=== PATIENT | female | born 1945 | race Caucasian/White ===

== ENCOUNTER → 2016-12-30 | Outpatient (CLI) | payer OTHER ==
--- NOTE | 2016-12-30 16:05 | KCIC ---
PROCEDURE Carotid Doppler ultrasound HISTORY CVA, stenosis of carotid artery, smoker COMPARISON None FINDINGS Multiple grayscale, color, and duplex spectral analysis waveform images of the cervical arterial vasculature are submitted. Any determination of stenosis is based on NASCET criteria. No significant focal stenosis is demonstrated on grayscale or color images. There is antegrade flow of the vertebral arteries bilaterally. There is mild eccentric plaque of the carotid bulbs. Velocities in cm/sec are as follows: Right: CCA PSV 69, EDV 13 Maximal ICA PSV 92, EDV 22 External PSV 56 Vertebral PSV 22 ICA/CCA ratio 1.3 Left: CCA PSV 53, EDV 12 Maximal ICA PSV 55, EDV 12 External PSV 92 Left vertebral PSV 44 ICA/CCA ratio 1.03 IMPRESSION 1. There is mild plaque of the carotid bulbs bilaterally, no evidence of a hemodynamically significant stenosis. Electronically signed by: Fred Brenner MD (Dec 30, 2016 16:03:47)
--- NOTE | 2016-12-31 08:33 | KCIC ---
Bilateral digital screening mammograms with CAD: HISTORY Routine screening. COMPARISON New baseline. No previous films are available for comparison. FINDINGS Breast density category C. The skin and nipples show no abnormalities. No abnormal lymph nodes are seen in the axilla. The breast parenchyma shows heterogeneous density. There is a small 9 millimeter nodular parenchymal density in the lower inner quadrant of the left breast posteriorly. Further evaluation with ultrasound is recommended. There are no other dominant masses, suspicious calcifications or architectural distortions. Benign appearing calcifications are present. IMPRESSION 9 millimeter nodular density in the lower inner quadrant of the left breast posteriorly. Recommend further evaluation with ultrasound. This study was interpreted with the benefit of Computerized Aided Detection (CAD). Mammography is not 100% sensitive in detecting breast cancer. Therefore, a self breast exam and a clinical breast exam are very important. A negative mammogram does not negate a clinically suspicious finding and should not result in a delay in biopsying a clinically suspicious abnormality. BI-RADS category 0: Incomplete. Ultrasound followup is recommended. This patient's information has been entered into a reminder system for the patient to be notified with the results of this examination and a target date for her next mammograms. Electronically signed by: Lula Mtz MD (Dec 31, 2016 08:31:29)
== END | disposition home or self-care (01) ==
LOC: KCIC MAMMO 15:01
PROVIDERS: ATTEND Family Medicine
DX: Z12.31 Encounter for screening mammogram for malignant neoplasm of breast (principal); I63.9 Cerebral infarction, unspecified; I65.23 Occlusion and stenosis of bilateral carotid arteries; Z87.891 Personal history of nicotine dependence
CPT/HCPCS: 93880; G0202; 77067

== ENCOUNTER → 2017-01-12 | Outpatient (CLI) | payer OTHER ==
--- NOTE | 2017-01-12 12:42 | RAD ---
EXAM: Left breast sonogram. HISTORY: 71-year-old female presents for avulsion of a nodule within the left breast demonstrated on a mammogram dated 12/30/2016. TECHNIQUE: Sonographic imaging of the left breast targeted to the 7:00 position and left axilla was performed. COMPARISON: 12/30/2016. FINDINGS: There is a circumscribed hypoechoic lesion within the 7:00 position of the left breast 8 cm from the nipple measuring 7 mm in maximum dimension. This demonstrates ill-defined peripheral echogenicity.. This is somewhat angulated on the radial image. There is no posterior shadowing or through transmission. There is a left axillary lymph node with benign fatty hilum. IMPRESSION: 1. 7 mm nodule within the 7:00 position of the left breast, corresponding with the mammographic finding of concern. The mammographic and sonographic features are not clearly benign. Sonographic guided biopsy is recommended for definitive diagnosis. 2. BI-RADS Category 4: Suspicious finding. Sonographic biopsy is recommended. These findings and recommendations were discussed with the patient and will be communicated to the referring physician office.
== END | disposition home or self-care (01) ==
LOC: KCIC US 12:12
PROVIDERS: ATTEND Family Medicine
DX: N63 Unspecified lump in breast (principal)
CPT/HCPCS: 76641

== ENCOUNTER → 2017-02-11 | Outpatient (CLI) | payer OTHER ==
[~2017-02-11] VITALS: Ht 162.6 cm; Wt 78.5 kg
[~2017-02-11] MED LIST: ATOR40TA59 PO; CLOP75TA PO; DULO30CA43 PO; LISI-334 PO; PANT40TA5 PO; TRAM50TA PO; TRAZ50TA15 PO
[2017-02-11 13:36] VITALS: BP 147/68
--- NOTE | 2017-02-11 15:45 | RAD ---
Ultrasound-guided breast biopsy History: Left breast mass. Comparison: Left breast ultrasound 01/12/2017. Procedure: Risks, benefits and complications of the procedure were discussed with the patient. Written informed consent was obtained. Preprocedure ultrasound imaging was performed of the left breast. In the left breast at 7:00, a rounded mass which had appearance of mildly complicated cyst was seen. This mass appears to be at 7:00 located about 4 cm from nipple (previous study indicated that the lesion was at 7:00, 8 cm the nipple). Careful scanning was performed of the medial inferior quadrant of the left breast, and no other lesion was identified. It is thought that the current lesion represented the previously identified abnormality. This lesion was targeted. The skin was prepped and draped in usual sterile fashion. Local anesthesia with 1% lidocaine. Under ultrasound visualization, single pass with a Bard 14-gauge biopsy gun was made. The mass disappeared after the first pass, and it is thought that this mass represented a cyst. No other biopsy passes were made. As lesion resolved, biopsy clip was not deployed. Patient tolerated procedure well and there were no acute ill effects. Impression: On current examination, a hypoechoic mass which is thought to be a cyst was identified in the left breast at 7:00, 4 cm from the nipple, as lesion resolved after first biopsy pass. The previous study indicated that the mass was at 7:00, 8 cm from the nipple. Careful scanning of the medial inferior left breast failed to demonstrate any other lesion, and consequently the mass at 7:00, 4 cm the nipple was targeted.
--- NOTE | 2017-02-15 16:50 | PATHOLOGY ---
PATHOLOGY REPORT * * * * * * * * FINAL DIAGNOSIS: Breast tissue, left breast mass at 7:00 needle biopsy: - Focal stromal fibrosis. COMMENT: There is no distinct cyst lining identified. There is no evidence of malignancy. (JPM:; d/t: 02/15/17) REPORT ELECTRONICALLY SIGNED BY: Ciaran Reed M.D. DATE/TIME: 02/15/2017 16:48 * * * * * * * * GROSS PATHOLOGY: Received in formalin labeled "Autumn Melissa, left breast mass," are multiple needle cores of yellow-garcia fibrofatty tissue measuring 1.2 x 0.2 x 0.1 cm in aggregate dimensions. The tissue is submitted in its entirety in cassette A1. The cold ischemic time is 5 minutes. The total formalin fixation time is 28 hours. (SNA; 02/12/2017) INITIAL CPT CODE(S): A; 55854 Professional services performed by [facility] [place] [address] Technical services performed by [facility] at [address] [place] [address]. SPECIMEN(S) RECEIVED: A.Left breast mass CLINICAL HISTORY: Left breast mass at 7:00, resolved after biopsy, probable cyst PATIENT: AUTUMN MELISSA /AGE: 603/20/1945 (Age: 71) PATIENT #: [id number] ALT CASE #: SPECIMEN COLLECTION DATE: 02/11/2017 SPECIMEN RECEIVED DATE: 02/11/2017 [facility] - [address] [place] [address] - PHONE: [phone] * * * END OF REPORT * * *
== END | disposition home or self-care (01) ==
LOC: US 12:58
PROVIDERS: ATTEND Surgery
DX: N63 Unspecified lump in breast (principal)
CPT/HCPCS: 19081; 76942; 88305

== ENCOUNTER → 2017-03-11 | Day surgery (SDC) | payer OTHER ==
[~2017-03-11] MED LIST changes: +HYDROmorphone 2 MG/ML VIAL IV PRN; +IV RINGERS,LACTATED 1000ML 1,000 ML IV SCH; +LIDOCAINE 1% 1 ML SYRINGE. ID PRN; +LIDOCAINE 2% PF Vial for OR 5 ML VIAL. ONE; +MORPHINE SULFATE 2 MG/ML DISP.SYRIN. IV PRN; +NITR100C62 PO; +ONDANSETRON PF 4 MG/2 ML VIAL. IV PRN; +PROCHLORPERAZINE 10 MG/2 ML VIAL. IV PRN; +PROPOFOL 20 ML IV ONE; +PROPOFOL 40 ML IV ONE; +fentaNYL PF VIAL 100 MCG/2 ML VIAL IV PRN
[2017-03-11 13:30] VITALS: BP 102/55
--- NOTE | 2017-03-12 08:45 | HP ---
ADMIT DATE: 03/11/2017 REFERRING PHYSICIAN: Jodee Sanches MD HISTORY OF PRESENT ILLNESS: This is a 71-year-old female with past medical history significant for hyperlipidemia, hypertension, gastroesophageal reflux disease with diverticulosis and cholelithiasis, who was admitted status post cholecystectomy, is seen for persistent epigastric abdominal pain ____ colorectal screening with a history of diverticular disease. She states she has increased discomfort when she does eat. There has been no dysphagia or odynophagia. There is heartburn for which she takes ____ Prilosec, pantoprazole. No melena and/or hematochezia. Weight and appetite have been stable. There has been some diarrhea recently as well. With the continued issues, she requested additional evaluation. PAST MEDICAL HISTORY: Hyperlipidemia, hypertension, gastroesophageal reflux disease. ALLERGIES: None. MEDICATIONS: Include atorvastatin, duloxetine, lisinopril, pantoprazole, tramadol and trazodone. SOCIAL HISTORY: She is a remote smoker and social drinker. FAMILY HISTORY: Significant for organic heart disease. PAST SURGICAL HISTORY: She is status post hysterectomy, cholecystectomy and bilateral hip replacements. DISPATCH LEAD HISTORY: 2, para 2. REVIEW OF SYSTEMS: Per records. PHYSICAL EXAMINATION: GENERAL: Reveals a well-nourished, well-developed female, who is alert, cooperative, in no acute distress. VITAL SIGNS: Pulse 75, respirations 16. HEENT: Reveals a normocephalic, atraumatic head. Pupils and extraocular movements are not tested. Sclerae anicteric. NECK: Supple. LUNGS: Clear. CARDIOVASCULAR: Reveals S1, S2 without S3, S4 or appreciable murmur. ABDOMEN: Reveals a soft abdomen, normal bowel sounds, epigastric tenderness to deep palpation. No appreciable hepatosplenomegaly. Multiple surgical incisions. EXTREMITIES: Reveals no cyanosis, clubbing or edema. IMPRESSION: 1. Epigastric abdominal pain, the etiology is to be determined, status post cholecystectomy. Upper endoscopy to further assess recommended. If this is unrevealing, then a gastric emptying study and a small bowel series may be pursued. 2. Colorectal screening, history of diverticular disease. Colonoscopy is recommended. I would like to thank Dr. Sanches for allowing us to consult and participate in this patient's care. OTIS FRANCIS MD DR: TARSHA/adriano JOB#: [id number] / [id number] JODEE Dunlap MD
--- NOTE | 2017-03-17 11:05 | PATHOLOGY ---
PATHOLOGY REPORT * * * * * * * * FINAL DIAGNOSIS: Esophageal biopsy, distal esophagus: - Segments of hyperplastic squamous esophageal mucosa and submucosa showing chronic inflammation, consistent with reflux esophagitis. COMMENT: Sections of the distal esophageal biopsy reveal segments of tangentially oriented, hyperplastic squamous esophageal mucosa and submucosa showing chronic inflammation, consistent with reflux esophagitis. There is no evidence of Navarro's change, dysplasia, or malignancy. REPORT ELECTRONICALLY SIGNED BY: Ciaran Reed M.D. DATE/TIME: 03/16/2017 13:26 * * * * * * * * GROSS PATHOLOGY: Received in formalin labeled "Autumn Melissa, distal esophageal biopsies," are 4 segments of huizar soft tissue measuring 0.6 x 0.5 x 0.3 cm in aggregate dimensions and ranging from 0.3 to 0.6 cm in maximum dimension. The specimen is submitted entirely in cassette A1. (KAH; 03/12/2017) INITIAL CPT CODE(S): A; 34232 Professional services performed by [facility] [place] [address] Technical services performed by [facility] at [address] [place] [address] [address] [address]. SPECIMEN(S) RECEIVED: A.Distal esophageal biopsies CLINICAL HISTORY: History of gastritis, epigastric pain, colon screening PATIENT: AUTUMN MELISSA /AGE: 603/20/1945 (Age: 71) PATIENT #: [id number] ALT CASE #: SPECIMEN COLLECTION DATE: 03/11/2017 SPECIMEN RECEIVED DATE: 03/11/2017 [facility] - [address] [place] [address] - PHONE: [phone] * * * END OF REPORT * * *
== END | disposition home or self-care (01) ==
LOC: ENDOS 11:34
PROVIDERS: ATTEND Internal Medicine Gastroenterology
DX: Z12.11 Encounter for screening for malignant neoplasm of colon (principal); K21.0 Gastro-esophageal reflux disease with esophagitis; K29.50 Unspecified chronic gastritis without bleeding; E78.00 Pure hypercholesterolemia, unspecified; I10 Essential (primary) hypertension; F32.9 Major depressive disorder, single episode, unspecified; M19.90 Unspecified osteoarthritis, unspecified site; F17.290 Nicotine dependence, other tobacco product, uncomplicated; Z98.41 Cataract extraction status, right eye; Z98.42 Cataract extraction status, left eye; Z90.49 Acquired absence of other specified parts of digestive tract; Z90.710 Acquired absence of both cervix and uterus; Z96.643 Presence of artificial hip joint, bilateral; Z96.651 Presence of right artificial knee joint; Z72.89 Other problems related to lifestyle
CPT/HCPCS: 43239; 45378; J2704; 88305

== ENCOUNTER 2017-03-12 13:11 | Emergency (ER) | payer OTHER ==
[~2017-03-12] VITALS: Ht 162.6 cm; Wt 77.1 kg
[~2017-03-12 13:11] MED LIST changes: -HYDROmorphone 2 MG/ML VIAL IV PRN; -IV RINGERS,LACTATED 1000ML 1,000 ML IV SCH; -LIDOCAINE 1% 1 ML SYRINGE. ID PRN; -LIDOCAINE 2% PF Vial for OR 5 ML VIAL. ONE; -MORPHINE SULFATE 2 MG/ML DISP.SYRIN. IV PRN; -NITR100C62 PO; -ONDANSETRON PF 4 MG/2 ML VIAL. IV PRN; -PROCHLORPERAZINE 10 MG/2 ML VIAL. IV PRN; -PROPOFOL 20 ML IV ONE; -PROPOFOL 40 ML IV ONE; -fentaNYL PF VIAL 100 MCG/2 ML VIAL IV PRN
[2017-03-12 14:12] LABS: BILIRUBIN,URINE SMALL (NEG); GLUCOSE,URINE NEGATIVE (NEG); NITRITE,URINE POSITIVE (NEG); PH,URINE 5.5; PROTEIN,URINE >=300 mg/dL (NEG-TRACE)
[2017-03-12 14:21] LABS: BACTERIA,URINE MANY /HPF (0-FEW); RBC,URINE TNTC /HPF (0-2); SQUAMOUS EPITHELIAL CELL,UR OCC /LPF; WBC,URINE TNTC /HPF (0-4)
[2017-03-12 14:30] VITALS: BP 129/61
[2017-03-12] MEDS ORDERED: NITR100C62 PO (15:00)
--- NOTE | 2017-03-12 15:00 | PHYS DOC ---
Past Medical History Past Medical History: Cancer, CVA Past Surgical History: Cancer Surgery, Hip Replacement, Hysterectomy, Knee Replacement Additional Information: E cigarettes Alcohol Use: Heavy Additional Information: Daily beer Drug Use: None Adult General Chief Complaint Chief Complaint: PAIN ON URINATION HPI HPI 71-year-old female presenting to the emergency department today with dysuria and polyuria and mild suprapubic abdominal pain. Her symptoms started 2-3 days ago. The pain is mild intermittent nonradiating and without alleviating factors. Review of systems is negative for nausea vomiting fevers or chills. All other review of systems is negative unless otherwise noted in history of present illness. Review of Systems Review of Systems SEE ABOVE. Allergies Allergies Allergies Coded Allergies Type Severity Reaction Last Updated Verified No Known Drug Allergies 03/11/17 No Physical Exam Physical Exam Constitutional: Well developed, well nourished, no acute distress, non-toxic appearance. [] HENT: Normocephalic, atraumatic, bilateral external ears normal, oropharynx moist, no oral exudates, nose normal. [] Eyes: PERRLA, EOMI, conjunctiva normal, no discharge. [] Neck: Normal range of motion, no tenderness, supple, no stridor. [] Cardiovascular:Heart rate regular rhythm, no murmur [] Lungs & Thorax: Bilateral breath sounds clear to auscultation [] Abdomen: Soft nontender abdomen without rebound tenderness or guarding present. Negative McBurneys point. Negative Low sign. No ecchymosis present. Skin: Warm, dry, no erythema, no rash. [] Back: No tenderness, no CVA tenderness. [] Extremities: No tenderness, no cyanosis, no clubbing, ROM intact, no edema. [] Neurologic: Alert and oriented X 3, normal motor function, normal sensory function, no focal deficits noted. [] Psychologic: Affect normal, judgement normal, mood normal. [] Current Patient Data Vital Signs Vital Signs Date Time Temp Pulse Resp B/P (MAP) Pulse Ox O2 Delivery O2 Flow Rate FiO2 03/12/17 14:30 84 16 129/61 (83) 95 Room Air 03/12/17 13:30 98.7 98.7 Lab Values Laboratory Tests Test 03/12/17 14:00 Urine Collection Type Unknown Urine Color Red Urine Clarity Turbid Urine pH 5.5 Urine Specific Warren 1.020 Urine Protein >=300 mg/dL (NEG-TRACE) Urine Glucose (UA) Negative mg/dL (NEG) Urine Ketones (Stick) Trace mg/dL (NEG) Urine Blood Large (NEG) Urine Nitrite Positive (NEG) Urine Bilirubin Small (NEG) Urine Urobilinogen Dipstick 1.0 mg/dL (0.2 mg/dL) Urine Leukocyte Esterase Large (NEG) Urine RBC Tntc /HPF (0-2) Urine WBC Tntc /HPF (0-4) Urine Squamous Epithelial Cells Occ /LPF Urine Bacteria Many /HPF (0-FEW) Urine Mucus Slight /LPF EKG EKG [] Radiology/Procedures Radiology/Procedures [] Course & Med Decision Making Course & Med Decision Making Pertinent Labs and Imaging studies reviewed. (See chart for details) [] 71-year-old female presenting to the emergency department with dysuria. Urinalysis sent positive for urinary tract infection. Postvoid residual showed 14 mL of urine. The patient was then discharged home in stable condition to follow up with their primary care physician over the next 2-3 days. They were to return if their symptoms worsened or if they were concerned for any reason. [id number] discharge instructions and return precautions were given. Patient' s questions were answered to their satisfaction. Patient is comfortable plan. Dragon Disclaimer Dragon Disclaimer This electronic medical record was generated, in whole or in part, using a voice recognition dictation system. Departure Departure Impression: Primary Impression: Urinary tract infection Disposition: 01 HOME, SELF-CARE Condition: STABLE Referrals: NATANAEL ROJAS (PCP) Patient Instructions: Urinary Tract Infection Additional Instructions: Thank you for allowing us to participate in your care today. Take your antibiotics as prescribed. Followup with your primary care physician in 3 days if your symptoms do not improve. If you do not have a primary care provider you can ask for a list of our primary care providers. Return to the emergency department you have any new or concerning findings. This should be evaluated by the primary care physician and any necessary consulting services for continued management within a few days after discharge. Return to emergency room if you have any new or concerning symptoms including but not limited to fever, chills, nausea, vomiting, intractable pain, any new rashes, chest pain, shortness of air, uncontrolled bleeding, difficulty breathing, and/or vision loss. Scripts Nitrofurantoin Monohyd/M-Cryst (MACROBID 100 MG CAPSULE) 100 Mg Capsule 1 CAP PO BID, #10 CAP Prov: HELIO CALLOWAY MD 03/12/17 HELIO CALLOWAY MD March 12, 2017 15:00
== END 2017-03-12 15:17 | disposition home or self-care (01) ==
LOC: ER 13:11
DX: N39.0 Urinary tract infection, site not specified (principal); Z86.73 Personal history of transient ischemic attack (TIA), and cerebral infarction without residual deficits; Z90.710 Acquired absence of both cervix and uterus; Z96.649 Presence of unspecified artificial hip joint; Z96.659 Presence of unspecified artificial knee joint; F10.10 Alcohol abuse, uncomplicated; F17.210 Nicotine dependence, cigarettes, uncomplicated
CPT/HCPCS: 81001; 87086; 99284

== ENCOUNTER → 2018-03-28 | Outpatient (CLI) | payer OTHER | END | disposition home or self-care (01) | LOC: KCIC 13:18 | DX: S62.613A Displaced fracture of proximal phalanx of left middle finger, initial encounter for closed fracture (principal); M19.042 Primary osteoarthritis, left hand; M79.89 Other specified soft tissue disorders; Z91.81 History of falling; X58.XXXA Exposure to other specified factors, initial encounter; Y93.89 Activity, other specified; Y92.89 Other specified places as the place of occurrence of the external cause; Y99.8 Other external cause status | CPT/HCPCS: 73080; 73090; 73110; 73120 ==